=== PATIENT | male | born 1965 ===

== ENCOUNTER → 2016-06-03 | Outpatient (CLI) | payer BC | LOC: MW.CHIM 11:22 | PROVIDERS: ATTEND Internal Medicine | DX: R07.9 Chest pain, unspecified (principal) | CPT/HCPCS: 93005 ==

== ENCOUNTER → 2016-06-10 | Outpatient (CLI) | payer BC ==
--- NOTE | 2016-06-14 19:52 | ECHO ---
The echocardiogram report can be seen in this patient's EMR in the Reports section. JENISE
== END ==
LOC: MW.US 13:08
PROVIDERS: ATTEND Internal Medicine
DX: I49.3 Ventricular premature depolarization (principal)
CPT/HCPCS: 93306

== ENCOUNTER → 2016-06-16 | Outpatient (CLI) | payer BC | LOC: MW.RT 14:20 | PROVIDERS: ATTEND Internal Medicine | DX: I49.3 Ventricular premature depolarization (principal) | CPT/HCPCS: 93270 ==

== ENCOUNTER → 2016-06-21 | Outpatient (CLI) | payer BC ==
--- NOTE | 2016-06-21 11:02 | NM ---
EXAMINATION: Nuclear medicine myocardial perfusion study with exercise stress test. HISTORY: PVC. PROCEDURE: Patient exercised according to Panchito protocol for 9 minutes and 15 seconds and achieved maximal hear t rate of 174 beats per minute. Adequate exercise. Following intravenous administration of 27.3 mCi of technetium 99m sestamibi, stress SPECT images i ncluding gating imaging was performed. FINDINGS: Stress myocardial SPECT images demonstrates mildly decreased perfusion along the inferior wall from the mid portion to base. Review of gated images demonstrates mild to moderate hypokinesis along the inferior wall. The left v entricular ejection fraction is 51 %. The left ventricular chamber size is normal. IMPRESSION: 1. Decreased perfusion along the inferior wall, correlate with rest imaging. 2. Normal ventricular chamber size with borderline ejection fraction of 51 %.
--- NOTE | 2016-06-21 18:20 | PCM.PRNOTE ---
- Free Text/Narrative Note: Exercise MIBI Indication CP Sestamibi Tc99 25 MCi was given at the peak HR Patient was brought to the stress test lab in postabsorptive state verbal and paper consent was obtained from patient Vital signs at resting state blood pressure of 132/92 with a heart rate of 79 EKG shows sinus rhythm no ST changes no Q waves Maximal heart rate of 174 and target heart rate is 144 Patient reached the target heart rate, completed stage IV Panchito protocol Peak blood pressure is 166/100 Total exercise time of 9.[address] changes with a peak heart rate no arrhythmia METS 10.1 No symptom of chest pain or feeling dizzy Impression Normal hemodynamics, normal chronotropic, excellent exercise capacity, negative for ischemia on EKG Plan Nuclear portion pending
== END ==
LOC: MW.NM 07:41
PROVIDERS: ATTEND Internal Medicine
DX: I49.3 Ventricular premature depolarization (principal)
CPT/HCPCS: 78451; 93017; A9500